=== PATIENT | male | born 1960 | race Caucasian/White ===

== ENCOUNTER → 2020-04-20 | Outpatient (CLI) | payer OTHER ==
[~2020-04-20] MED LIST: ANTIVERT/2525 MG PO; AUGMENTIN 875875 MG PO; FLONASE 0.05% 121 EA NAS; LISINOPRIL5 MG PO; NAPROXEN220 MG PO; ZYRTEC10 M2 PO
== END | disposition home or self-care (01) ==
LOC: US 04-04 07:30
PROVIDERS: ATTEND Nurse Practitioner Family
DX: K70.0 Alcoholic fatty liver (principal)

== ENCOUNTER 2020-09-03 08:31 | Emergency (ER) | payer OTHER ==
[~2020-09-03] VITALS: Ht 182.8 cm; Wt 97.5 kg
[2020-09-03] MEDS ORDERED: MEDROL DOSEPAK4 MG PO (10:18)
== END 2020-09-03 10:40 | disposition home or self-care (01) ==
LOC: ED 08:31
DX: M25.552 Pain in left hip (principal); M54.5 Low back pain; F17.200 Nicotine dependence, unspecified, uncomplicated; Z79.2 Long term (current) use of antibiotics; Z79.899 Other long term (current) drug therapy

== ENCOUNTER 2021-07-13 13:05 | Emergency (ER) | payer OTHER ==
[~2021-07-13] VITALS: Ht 177.8 cm; Wt 97.5 kg
[~2021-07-13 13:05] MED LIST changes: +MEDROL DOSEPAK4 MG PO
[2021-07-13] MEDS ORDERED: AUGMENTIN 875-875 MG PO (13:40)
== END 2021-07-13 13:52 | disposition home or self-care (01) ==
LOC: ED 13:05
DX: K04.7 Periapical abscess without sinus (principal); L03.213 Periorbital cellulitis; Z79.899 Other long term (current) drug therapy

== ENCOUNTER 2025-01-25 13:21 | Emergency (ER) | payer OTHER ==
[~2025-01-25] VITALS: Wt 86.2 kg
[~2025-01-25 13:21] MED LIST changes: +AUGMENTIN 875-875 MG PO; +SIMVASTATIN5 MG PO
[2025-01-25] MEDS ORDERED: Acetaminophen/Hydrocodone 5 MG/325 MG TABLET PO ONE (14:00)
== END 2025-01-25 15:36 | disposition home or self-care (01) ==
LOC: ED 13:21
DX: S63.283A Dislocation of proximal interphalangeal joint of left middle finger, initial encounter (principal); I10 Essential (primary) hypertension; E78.00 Pure hypercholesterolemia, unspecified; F17.210 Nicotine dependence, cigarettes, uncomplicated; Z98.890 Other specified postprocedural states; W01.0XXA Fall on same level from slipping, tripping and stumbling without subsequent striking against object, initial encounter; Y93.89 Activity, other specified; Y92.89 Other specified places as the place of occurrence of the external cause; Y99.8 Other external cause status